=== PATIENT | male | born 1985 ===

== ENCOUNTER 2023-10-23 10:48 | Outpatient (AMB) | payer MEDICAID, SELFPAY ==
--- NOTE | 2023-10-23 11:25 | A.SPINEOV_ITS ---
Intake Visit Reasons: Back pain Intake Note: Mr. Gallagher is here today c/o Back/leg pain with numbness. 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 The 1st is that for the better part of his life, he has always had some kind of lower thoracic back pain, which will wrap around his ribs to the front of his upper abdominal area. This is like a dull ache which is there most of the time. In addition to this, he is more recently developed a severe pain shooting down his right leg into his outer calf with his foot feeling like it has of ice on it. This started sometime around April, was very severe. Maybe got a little bit better with physical therapy and some tincture of time but more last he is still dealing with that every day. He also reports numbness of his right leg to the degree where he does not feel comfortable driving anymore. He has no bowel or bladder incontinence. He does report significant balance issues. He was seen at [facility] and was evaluated and told he had a herniated disc in his lower back but a thoracic MRI was ordered. He has not been back yet to see them to discuss it. He heard about Dr. Andrade through his sister's coworkers and some people he knows and wanted to come in for another evaluation. He did not see a surgeon at the other hospital, just a PA who ordered the thoracic MRI. He smokes wilver erika daily to help with the pain. He has had severe arthritis of his left knee and at this point anti-inflammatories have not had much effect on any of his pain and ache. He tried Flexeril as well. He has not had any cortisone injections. He did try acupuncture without any relief. PMH: He has had 5 left knee surgeries and ultimately will need to have the left knee replaced but other than that denies any issues with his heart, lungs, kidneys, liver, intestines, blood clotting disorders, bleeding disorders, cancer etc. Social hx: As above, he smokes marijuana but no cigarettes or alcohol Medications: No regular medication Allergies: Penicillin gives him a rash and hives Physical exam: He is 6 ft 10, 390 lb, he has mild weakness of his right iliopsoas and his right dorsiflexion tibialis muscle group. I would rate these both as 4/5. Left lower extremity is full strength. He has hyperreflexia at the right patella with clonus in both ankles, worse on the right. He is signi ficantly off balance with tandem gait walking. Imaging review: He has a thoracic MRI done at the [facility], shows a congenitally narrow spinal canal. There are multiple bulging discs, primarily on the left side at the upper thoracic and lower thoracic. There are varying degrees of moderate central canal stenosis because of this. However, at what appears to be T3-4 there is combination of ligamentous overgrowth and disc bulging causing severe stenosis. The radiologist does not register this on their report. They mentioned that the spinal cord contour looks normal but I do see some hyperintensity in the upper thoracic cord. The images somewhat degraded by his body size. His lumbar MRI was done at [facility] and this shows transitional anatomy but what looks like L4-5 has moderate to severe central canal stenosis at L5-S1 has bilateral severe L5 foraminal stenosis. Impression: 38-year-old gentleman presents for evaluation of 2 separate issues with his spinal column. The 1st is he has a mid to lower thoracic back pain which will wrap around the ribs to the front toward the upper abdominal region. He also has associated gait imbalance, feelings of numbness of his right leg as well as hyperreflexia and weakness on his exam. I think he has a thoracic myelopathy. The area of the worse stenosis appears to be T3-4 and there may be some cord signal change in the upper thoracic cord. There are also varying degrees of moderate stenosis in the upper thoracic cord and lower thoracic cord as well. I will review his imaging with Dr. Andrade to see if this is something he thinks can be done with simple decompression versus a more extensive involved fusion surgery. It may depend on whether or not that disc is calcified. The 2nd issue is a lumbar radiculopathy which radiates down into his right leg and right foot in an L5 distribution. That I think is coming from the stenosis at L4-5 in the foraminal stenosis in the right L5 foramen. This again is also something that could be dealt with with a simple decompression and I do not believe he will need fusion because he does not have any back pain in the lumbar region. Once I have a chance to review everything with Dr. Andrade I will call the patient back with the surgical plan. Thank you for allowing us to care for your patient. The total time spent with this visit with this patient was 45 minutes reviewing history, physical exam, thoracic and lumbar imaging review, and implementation of treatment plan or further diagnostic testing Leo Andrade MD,PhD [facility] Coding Level of Care Code New Pt Level 4 (60054) Diagnoses Thoracic myelopathy M47.14 Lumbar radiculopathy M54.16
== END 2023-10-23 12:25 | disposition home or self-care (01) ==
PROVIDERS: PCP Internal Medicine; Visit Provider Physician Assistant
DX: M47.14 Other spondylosis with myelopathy, thoracic region (principal); M54.16 Radiculopathy, lumbar region
CPT/HCPCS: 99204

== ENCOUNTER → 2023-10-23 10:48 | Outpatient (BNVA) | payer MEDICAID, SELFPAY | PROVIDERS: PCP Internal Medicine; Visit Provider Physician Assistant | DX: M47.14 Other spondylosis with myelopathy, thoracic region (principal); M54.16 Radiculopathy, lumbar region | CPT/HCPCS: 99202 ==

== ENCOUNTER 2024-06-03 07:31 | Outpatient (REF) | payer MEDICAID, SELFPAY ==
--- NOTE | ~2024-06-03 | CT_ITS ---
CLINICAL HISTORY: M47.14 - Other spondylosis with myelopathy, thoracic region CT thoracic spine without contrast Comparison: None Findings: No acute fracture or acute malalignment. Extensive postsurgical change T1 through T8. Fusion hardware appears intact. No definite fluid collection. Reference axial image 112, minimal central canal narrowing at T8-T9. Reference axial image 126, moderate central canal narrowing at T9-T10. Reference axial 142, moderate central canal narrowing at T10-T11. Mild central canal narrowing at T11-T12. The visualized lungs demonstrate no acute process. Impression: Postsurgical and degenerative changes as detailed. No comparison studies. This document has been electronically signed by: Sancho Sanchez MD on 06/03/2024 12:40:33
== END 2024-06-03 07:32 | disposition home or self-care (01) ==
LOC: HO.CT 07:31
PROVIDERS: PCP Physician Assistant Surgical; Visit Provider Physician Assistant
DX: M47.14 Other spondylosis with myelopathy, thoracic region (principal)
CPT/HCPCS: 72128

== ENCOUNTER → 2024-06-03 07:33 | Outpatient (BNV) | payer MEDICAID, SELFPAY | PROVIDERS: PCP Physician Assistant Surgical; Visit Provider Radiology Vascular & Interventional Radiology | DX: M51.04 Intervertebral disc disorders with myelopathy, thoracic region (principal); M47.14 Other spondylosis with myelopathy, thoracic region | CPT/HCPCS: 72128 ==